=== PATIENT | male | born 2000 | race Caucasian/White ===

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

== ENCOUNTER 2022-01-30 10:05 | Outpatient (RCR) | payer OTHER ==
[~2022-01-30 10:05] MED LIST changes: +NAPROSYN500 MG PO
== END 2022-02-16 | disposition home or self-care (01) ==
LOC: WSOH
DX: Z20.3 Contact with and (suspected) exposure to rabies (principal); W55.81XA Bitten by other mammals, initial encounter; Y99.0 Civilian activity done for income or pay

== ENCOUNTER 2022-02-02 07:14 | Outpatient (RCR) | payer BC, MEDICAID ==
[~2022-02-02] VITALS: Ht 167.6 cm; Wt 61.3 kg
[2022-02-02 07:23] VITALS: BP 114/66; PULSE 68; TEMP 97.9
== END 2022-02-02 08:55 | disposition home or self-care (01) ==
LOC: EUO 07:14 → EDSTATUS 08:00 → EUO 08:00
DX: Z23 Encounter for immunization (principal)